=== PATIENT | female | born 1960 | race Caucasian/White ===

== ENCOUNTER 2018-06-11 14:30 | Inpatient (IN) | payer OTHER ==
[~2018-06-11] VITALS: Ht 162.6 cm; Wt 50.8 kg
[2018-06-11] MEDS ORDERED: ALPR0.255 PO (15:07)
[2018-06-11] MEDS ORDERED: CARB200T PO (15:07)
[2018-06-11] MEDS ORDERED: MAG HYDROX/AL HYDROX/SIMETH 30 ML LIQUID UDC PO PRN (16:15)
[2018-06-11] MEDS ORDERED: MAGNESIUM HYDROXIDE 30 ML LIQUID UDC PO PRN (16:15)
--- NOTE | 2018-06-11 16:26 | NUR ---
PT TRANSFERED TO MHU IN STABLE CONDITION. PT WAS CALM THE WHOLE ER STAY.
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
[2018-06-11 18:27] VITALS: BP 100/60
[2018-06-11 19:30] VITALS: BP 103/50
[2018-06-11] MEDS ORDERED: CARBAMAZEPINE 200 MG TABLET PO SCH (20:15)
[2018-06-11] MEDS: CARBAMAZEPINE 100 MG TAB.CHEW PO SCH (20:43)
[2018-06-12 07:30] VITALS: BP_SYST 100; BP_SYST 103; BP_SYST 162; BP_DIAS 59; BP_DIAS 60; BP_DIAS 63
[2018-06-12 08:14] LABS: BASOPHILS % (AUTO) 0.6 % (0.0-2.0); EOSINOPHILS # (AUTO) 0.2 K/uL (0.0-0.7); EOSINOPHILS % (AUTO) 3.4 % (0.0-7.0); HEMATOCRIT 38.4 % (31.2-41.9); HEMOGLOBIN 12.9 g/dL (10.9-14.3); LYMPHOCYTES # (AUTO) 2.2 K/uL (20.0-40.0); LYMPHOCYTES % (AUTO) 40.9 % (20.5-51.5); MEAN CORPUSCULAR HEMOGLOBIN 32.6 uug (24.7-32.8); MEAN CORPUSCULAR HGB CONC 34 g/dL (32.3-35.6); MEAN CORPUSCULAR VOLUME 97.2 fL (75.5-95.3); MONOCYTES # (AUTO) 0.4 K/uL (2.0-10.0); MONOCYTES % (AUTO) 8.3 % (0.0-11.0); NEUTROPHILS # (AUTO) 2.5 K/uL (1.8-8.9); NEUTROPHILS % (AUTO) 46.8 % (38.5-71.5); PLATELET COUNT (AUTO) 273 K/uL (179-408); RED BLOOD CELL COUNT(AUTO) 3.95 MIL/uL (3.63-4.92); WHITE BLOOD COUNT (AUTO) 5.4 K/uL (3.8-11.8)
[2018-06-12 08:52] LABS: BILIRUBIN,TOTAL 0.3 mg/dL (0.2-1.0); CREATININE 0.9 mg/dL (0.6-1.3); MAGNESIUM 2.4 mg/dL (1.8-2.4); PHOSPHOROUS 3.5 mg/dL (2.5-4.9); POTASSIUM 3.9 mmol/L (3.5-5.1); TOTAL PROTEIN, SERUM 8.1 g/dL (6.4-8.2)
[2018-06-12 09:14] LABS: THYROID STIMULATING HORMONE 1.518 mIU/mL (0.358-3.740)
[2018-06-12] MEDS: CARBAMAZEPINE 100 MG TAB.CHEW PO SCH ×2 (09:42→20:12)
[2018-06-12 17:22] VITALS: BP 103/59
[2018-06-12] MEDS: ATORVASTATIN 20 MG TABLET PO SCH (20:12)
[2018-06-12] MEDS: EZETIMIBE 10 MG TABLET PO SCH (20:12)
[2018-06-12 20:17] VITALS: BP 104/57
[2018-06-12] MEDS: TEMAZEPAM 7.5 MG CAPSULE PO PRN (21:27)
--- NOTE | 2018-06-13 06:36 | NUR ---
Pt slept comfortably t/o the night, total of 8 hours. Meds given as ordered. No acute distress noted. Pt had shower this morning. All needs attended to promptly. Continue to monitor. Will endorse to day shift RN.
[2018-06-13 07:30] VITALS: BP 100/51
[2018-06-13] MEDS: CARBAMAZEPINE 100 MG TAB.CHEW PO SCH ×2 (08:46→20:04)
--- NOTE | 2018-06-13 10:12 | NUR ---
UR Note: On 06/12/18, Ladies Underwear Operator faxed Inpatient Request Form to [facility] Crimping Press OperatorGiovanna (ph [phone]; fax [phone]). At 0800 on 06/13/18, received call from [facility] Crimping Press OperatorKelsi (direct line [phone]). Patient authorized until 06/17/18 with review due on that day. Reference #[id number]. SW will continue to follow-up.
--- NOTE | 2018-06-13 10:18 | NUR ---
Firearms Report: [employer] Plant Operator completed and submitted [employer] Firearms report on 06/13/18 for 5150 Danger to Self Certification.
[2018-06-13 15:00] VITALS: BP 110/60
--- NOTE | 2018-06-13 16:11 | NUR ---
Initial Discharge Instructions: Patient is currently homeless and is in need of placement. Patient is utilizing services from [employer] ([phone]) in [facility]. Patient is working with the Oxygen Equipment Aide, Nico Vazquez ([phone]) in order to find housing. SW attempted to contact Nico in order to collaborate for placement options. SW left message. TED will speak with pt's godmother, Noemí Leal ([phone]). TED will continue to collaborate with the pt, family, placement agency, and MD regarding most appropriate discharge plans for this patient. SW will form a safe and proper discharge plan.
--- NOTE | 2018-06-13 17:59 | NUR ---
Gps?political cartoonist- Patient requesting to have her tegretol be given at 0800 and 2000 as per her routine at home, Pharmacy was called to change administration time.
[2018-06-13 20:00] VITALS: BP 128/75
[2018-06-13] MEDS: QUETIAPINE FUMARATE 25 MG TABLET PO SCH (20:05)
[2018-06-13] MEDS: ACETAMINOPHEN 325 MG TABLET PO PRN (20:05)
[2018-06-13] MEDS: ATORVASTATIN 20 MG TABLET PO SCH (20:05)
--- NOTE | 2018-06-13 20:05 | NUR ---
PT'S A/A/O X3-4,AMBULATED AROUND IN THE HALLWAY AND ASKED FOR SANDWICH,TOLERATED WELL NOTED.PER PT STATED THAT "I FELT MY LEFT BREAST PAIN BUT I'M OK";OFFERED TYLENOL 650 MG PO X1 TO PT;PT VERBALIZED UNDERSTANDING AND COMPLIANT WITH MEDICATION,STATED THAT"I THINK I SHOULD GO BACK TO BED AND TRY TO SLEEP.I WALKED A LOT TODAY".KEPT COMFORT TO PT.CLOSELY MONITORING.
[2018-06-13] MEDS: EZETIMIBE 10 MG TABLET PO SCH (20:10)
--- NOTE | 2018-06-14 06:00 | NUR ---
Pt slept for 7.3 hours in the shift.no distress noted.pt compliant with care and medication.
[2018-06-14 07:30] VITALS: BP 95/60
[2018-06-14] MEDS: CARBAMAZEPINE 100 MG TAB.CHEW PO SCH ×2 (08:27→20:09)
[2018-06-14] MEDS: ACETAMINOPHEN 325 MG TABLET PO PRN (08:59)
[2018-06-14 09:35] LABS: *BILIRUBIN,URIN NEGATIVE (NEGATIVE); *BLOOD, URINE NEGATIVE (NEGATIVE); *CLARITY,URINE CLEAR (CLEAR); *COLOR,URINE YELLOW (YELLOW); *KETONES,URINE NEGATIVE (NEGATIVE); *PROTEIN,URINE NEGATIVE (NEGATIVE); *UROBILINOGEN,URINE 0.2 E.U./dl (NORMAL); LEUKOCYTE ESTERASE ,URINE NEGATIVE (NEGATIVE); NITRITE, URINE NEGATIVE (NEGATIVE); PH,URINE 5.5 (5.0-8.0); UGLUCOSE NEGATIVE (NEGATIVE)
[2018-06-14 10:05] LABS: BACTERIA,URINE NONE SEEN /HPF (NONE SEEN); RBC,URINE 0-3 /HPF (0-3); SQUAMOUS EPITHELIAL CELL,UR FEW /HPF (NONE SEEN); WBC,URINE 0-3 /HPF (0-3)
--- NOTE | 2018-06-14 10:08 | NUR ---
GPS/RN- PATIENT COMPLAINING OF BURNING ON URINATION. URINE COLLECTED. TYLENOL PRN GIVEN
[2018-06-14] MEDS ORDERED: CARBAMAZEPINE 200 MG TABLET PO ONE (12:00)
[2018-06-14] MEDS ORDERED: CARBAMAZEPINE 200 MG TABLET PO SCH (13:00)
[2018-06-14 15:28] VITALS: BP 105/61
[2018-06-14] MEDS: EZETIMIBE 10 MG TABLET PO SCH (20:08)
[2018-06-14] MEDS: ATORVASTATIN 20 MG TABLET PO SCH (20:09)
[2018-06-14] MEDS: QUETIAPINE FUMARATE 25 MG TABLET PO SCH (20:09)
[2018-06-14 20:30] VITALS: BP 104/62
[2018-06-15 07:30] VITALS: BP 106/62
[2018-06-15] MEDS: CARBAMAZEPINE 100 MG TAB.CHEW PO SCH ×3 (09:07→20:09)
[2018-06-15] MEDS: LORAZEPAM 0.5 MG TABLET PO PRN (11:27)
--- NOTE | 2018-06-15 14:50 | NUR ---
Patient alert oriented and anxious. medication taken as whole. Agitation noted around noon, ativan 0.5mg PRN given. not in distress. will continue monitor
[2018-06-15 16:49] VITALS: BP 112/60
[2018-06-15 20:00] VITALS: BP 114/69
[2018-06-15] MEDS: EZETIMIBE 10 MG TABLET PO SCH (20:09)
[2018-06-15] MEDS: QUETIAPINE FUMARATE 25 MG TABLET PO SCH (20:09)
[2018-06-15] MEDS: ATORVASTATIN 20 MG TABLET PO SCH (20:09)
[2018-06-15] MEDS: TEMAZEPAM 7.5 MG CAPSULE PO PRN (21:10)
[2018-06-16 07:30] VITALS: BP 100/64
[2018-06-16] MEDS: CARBAMAZEPINE 100 MG TAB.CHEW PO SCH ×3 (08:08→20:01)
[2018-06-16 16:42] VITALS: BP 129/77
[2018-06-16 19:30] VITALS: BP 108/62
[2018-06-16] MEDS: EZETIMIBE 10 MG TABLET PO SCH (20:01)
[2018-06-16] MEDS: QUETIAPINE FUMARATE 25 MG TABLET PO SCH (20:01)
[2018-06-16] MEDS: ATORVASTATIN 20 MG TABLET PO SCH (20:01)
--- NOTE | 2018-06-17 06:43 | NUR ---
Pt was calm, no agitation observed. Slept 9.0 hrs. All routine meds taken. Showered in am. Safety measures rendered.
[2018-06-17 07:30] VITALS: BP 96/60
[2018-06-17] MEDS: CARBAMAZEPINE 100 MG TAB.CHEW PO SCH ×3 (08:15→20:25)
[2018-06-17 15:42] VITALS: BP 118/69
--- NOTE | 2018-06-17 15:58 | NUR ---
UR Note: Received call from newly-assigned [facility] Simulation Software Engineer, Raji (direct line: [phone]) requesting clinical review on 06/18/18. Reference #[id number]. SW will continue to follow-up.
[2018-06-17 19:30] VITALS: BP 104/72
[2018-06-17] MEDS: EZETIMIBE 10 MG TABLET PO SCH (20:25)
[2018-06-17] MEDS: ATORVASTATIN 20 MG TABLET PO SCH (20:25)
[2018-06-17] MEDS: QUETIAPINE FUMARATE 25 MG TABLET PO SCH (20:28)
[2018-06-17] MEDS: ACETAMINOPHEN 325 MG TABLET PO PRN ×2 (21:38→21:44)
--- NOTE | 2018-06-18 00:08 | NUR ---
Patient expressed that she will be getting out of the hospital tomorrow and that she cannot wait to get her puppy. Pt took her medication without incident. Pt stated that she is concerned about her cholesterol due to the fact that the doctor has her on more than 1 cholesterol medication. Pt woke up <1hr after lying down complaining of sharp pain in the abdomen. Pt vital signs were taken. Pt BP was normal, O2= 100%, HR WNL. Pt offered PRN medication. Pt fell asleep before administration.
--- NOTE | 2018-06-18 07:03 | NUR ---
Pt c/o having sharp abdominal pain, VS taken WNL, PRN tylenol offered, pt fell asleep before administration. Pt slept 9 hours, showered in AM, pt states that she is feeling better. Pt states that she was just down when she came here because of her .
[2018-06-18 07:30] VITALS: BP 117/57
[2018-06-18] MEDS: CARBAMAZEPINE 100 MG TAB.CHEW PO SCH ×2 (08:09→12:08)
[2018-06-18] MEDS ORDERED: MULTIVITAMINS,THERAPEUTIC TABLET PO SCH (09:00)
[2018-06-18] MEDS: LORAZEPAM 0.5 MG TABLET PO PRN (11:10)
--- NOTE | 2018-06-18 13:36 | NUR ---
Discharge Note: Patient will be discharged to self-care [[address], [place] [address], ] via taxi. Patient refused placement in [facility], although it was offered to her. Patient is alert and oriented x4, is able to plan for self-care, and denies SI/HI. Patient plans to go to the [facility] for snf located at [[address], [place] [address]; ]. Patient is aware that there are no beds available for the evening, but reports she would like to be in [facility]. SW alerted the Proof Technician Department at the [facility] about patients plans. Patient reports she will continue to follow-up with her outpatient Psychiatrist, Dr. Luci Wooten [[address], [place] [address]; ]. Patient will also continue to follow-up with her Primary Care Physician, Dr. Pop Bland [[address], [place] [address]; [phone]]. Patient was provided with a brief substance abuse intervention and was referred to [facility] ([phone]); [facility] National Helpline ( ); and [facility] [[address] [place], [place]; [phone]]. Patient was given outpatient mental health referrals to [facility] [[address], [place] [address]; [phone]]; [facility] Crisis Line ([phone]); [place] [facility] ( ). Patient was provided with a homeless resource packet. Homeless resource packet includes a list of emergency shelters, housing resources, drop in centers, and showers and hot meals centers. For smoking cessation, patient was referred to [employer] 800-LUNGUSA and [employer] [phone]. Patient has signed the homeless patient waiver form. Addendum: 06/18/18 at 1530 by EULALIO CHRISTY, ARYA SW Correction: Patient was discharged to self-care at [[address] [place] [address]; [phone]] via taxi.
--- NOTE | 2018-06-18 15:20 | NUR ---
pt stable upon discharge at 1515. pt discharged with belongings. belongings list signed and placed in chart. pt left with taxi with all belongings. pt sent to a different location compared to whats planned. social media director aware. pt signed discharge summary and placed in chart. pt sent home with prescriptions and was given referral packets for places to stay because patient is homeless. no sob noted. no signs of suicidal ideation nor homicidal ideation.
--- NOTE | 2018-06-18 15:35 | NUR ---
UR Note: Provided discharge clinicals over the phone to [facility] Forklift DriverRaji ([phone]). Reference #[id number]. SW will continue to follow-up if needed.
== END 2018-06-18 15:30 | disposition home or self-care (01) | DRG 885 ==
LOC: ER 14:31 → GPS 15:53
PROVIDERS: ADMIT Psychiatry & Neurology Psychosomatic Medicine; ATTEND Psychiatry & Neurology Psychosomatic Medicine
DX: F31.9 Bipolar disorder, unspecified (principal); B19.20 Unspecified viral hepatitis C without hepatic coma; R45.851 Suicidal ideations; F43.10 Post-traumatic stress disorder, unspecified; Z59.0 Homelessness; G40.909 Epilepsy, unspecified, not intractable, without status epilepticus; E78.5 Hyperlipidemia, unspecified; F19.11 Other psychoactive substance abuse, in remission; Z88.8 Allergy status to other drugs, medicaments and biological substances; Z79.899 Other long term (current) drug therapy; F17.210 Nicotine dependence, cigarettes, uncomplicated; F41.9 Anxiety disorder, unspecified; J44.9 Chronic obstructive pulmonary disease, unspecified; V89.2XXS Person injured in unspecified motor-vehicle accident, traffic, sequela; T42.4X1S Poisoning by benzodiazepines, accidental (unintentional), sequela
CPT/HCPCS: 36415; 71045; 83735; 84100; 84443; 85025; 87086; 93005; A4663; J8499